=== PATIENT | male | born 1955 | race Caucasian/White ===

== ENCOUNTER 2017-05-04 09:48 | Observation (INO) | payer OTHER ==
[~2017-05-04] VITALS: Ht 170.2 cm; Wt 90.9 kg
[2017-05-04] VITALS (12 sets, daily range): BP systolic 96–144; BP diastolic 64–85
[2017-05-04] MEDS ORDERED: dilTIAZem 25 MG/5 ML VIAL ONE (10:04)
[2017-05-04] MEDS ORDERED: IV DEXTROSE 5% 100 ML IV ONE (10:06)
[2017-05-04] MEDS ORDERED: ASPIRIN 81 MG TAB.CHEW PO ONE (10:10)
[2017-05-04] MEDS ORDERED: dilTIAZem 25 MG/5 ML VIAL IVP ONE (10:10)
--- NOTE | 2017-05-04 10:22 | RAD ---
Portable chest, 05/04/2017: History: Palpitations Comparison is made to a study from 09/14/2006. There has been a previous median sternotomy. The heart size and pulmonary vascularity are normal. No pulmonary infiltrates are seen. There is no evidence of pleural fluid. IMPRESSION: No acute cardiopulmonary abnormality is detected.
[2017-05-04 10:29] LABS: BASO # 0.1 x10^3/uL (0.0-0.2); BASO % 1 % (0-3); EOS # 0.1 x10^3/uL (0.0-0.7); EOS % 1 % (0-3); HEMATOCRIT 47.9 % (39.0-53.0); LYMPH # 1.2 x10^3/uL (1.0-4.8); LYMPH % 13 % (24-48); MEAN CORPUSCULAR HEMOGLOBIN 29 pg (25-35); MEAN CORPUSCULAR HGB CONC 33 g/dL (31-37); MEAN CORPUSCULAR VOLUME 86 fL (79-100); MONO # 0.4 x10^3/uL (0.0-1.1); MONO % 4 % (0-9); NEUT # 7.4 x10^3uL (1.8-7.7); NEUT % 81 % (31-73); PLATELET COUNT 209 x10^3/uL (140-400); RED BLOOD COUNT 5.57 x10^6/uL (4.30-5.70); RED CELL DISTRIBUTION WIDTH 14.2 % (11.5-14.5); WHITE BLOOD COUNT 9.1 x10^3/uL (4.0-11.0)
--- NOTE | 2017-05-04 10:33 | ED.ADGEN ---
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 Patient states that he was at work when he felt his heart rate "begin to race". He denies any chest pain or shortness breath, any nausea or vomiting, any focal weakness, numbness or tingling, any near-syncope or presyncopal symptoms, any headache, vision changes , swelling of the extremities, rashes, fevers, chills or other complaints. He states he is feeling well before this occurred, states she's been compliant with all medications, including 160 mg of aspirin when he took this morning. Patient states she's had palpitations from time to time previously, but never as persistent as this morning. He states they began around 7:00 at the present for the past 3 hours or so. He states he has not previously been evaluated for palpitations. No history of DVT or PE, no recent travel or surgery. EMS 12-lead is consistent with atrial fibrillation with a heart rate in the 140s, patient has no history of atrial fibrillation or arrhythmia. He does not take blood thinners or aspirin. Denies tobacco use, no drugs or alcohol. Review of Systems Review of Systems Constitutional: Denies fever or chills [] Eyes: Denies change in visual acuity, redness, or eye pain [] HENT: Denies nasal congestion or sore throat [] Respiratory: Denies cough or shortness of breath [] Cardiovascular: No additional information not addressed in HPI [], palpitations. GI: Denies abdominal pain, nausea, vomiting, bloody stools or diarrhea [] : Denies dysuria or hematuria [] Musculoskeletal: Denies back pain or joint pain [] Integument: Denies rash or skin lesions [] Neurologic: Denies headache, focal weakness or sensory changes [] Endocrine: Denies polyuria or polydipsia [] Current Medications Current Medications Current Medications Medications (Trade) Dose Ordered Sig/Kyle Start Time Stop Time Status Last Admin Dose Admin Aspirin (Children'S Aspirin) 162 mg 1X ONCE 05/04/17 10:10 05/04/17 10:11 DC 05/04/17 10:21 162 MG Dextrose 100 ml @ As Directed STK-MED ONCE 05/04/17 10:06 05/04/17 10:07 DC Diltiazem HCl (Cardizem) 125 mg STK-MED ONCE 05/04/17 10:07 05/04/17 10:08 DC Diltiazem HCl 125 mg/Dextrose 125 ml @ 10 mls/hr 1X ONCE 05/04/17 10:10 05/04/17 22:39 05/04/17 10:24 10 MLS/HR Enoxaparin Sodium (Lovenox 100mg Syringe) 90 mg 1X ONCE 05/04/17 11:30 05/04/17 11:31 DC 05/04/17 11:32 90 MG Info (Anti-Coagulation Monitoring By Pharmacy) 1 each PRN DAILY PRN 05/04/17 11:15 Metoprolol Succinate (Toprol Xl) 100 mg 1X ONCE 05/04/17 11:25 05/04/17 11:26 DC 05/04/17 11:26 100 MG Allergies Allergies Allergies Coded Allergies Type Severity Reaction Last Updated Verified No Known Drug Allergies 05/04/17 No Physical Exam Physical Exam Constitutional: Well developed, well nourished, no acute distress, non-toxic appearance. [] HENT: Normocephalic, atraumatic, bilateral external ears normal, oropharynx moist, no oral exudates, nose normal. [] Eyes: PERRLA, EOMI, conjunctiva normal, no discharge. [] Neck: Normal range of motion, no tenderness, supple, no stridor. [] Cardiovascular:Heart rate irregular, rapid, no murmurs almond no rubs or gallops , S1, S2. [] Lungs & Thorax: Bilateral breath sounds clear to auscultation, no wheezing, rhonchi, rales. No chest or crepitus or tenderness. [] Abdomen: Bowel sounds normal, soft, no tenderness, no masses, no rebound, rigidity, no guarding, no pulsatile masses. [] Skin: Warm, dry, no erythema, no rash. [] Back: No tenderness, no CVA tenderness. [] Extremities: No tenderness, no cyanosis, no clubbing, ROM intact, no edema. Negative Homans sign. [] Neurologic: Alert and oriented X 3, normal motor function, normal sensory function, no focal deficits noted. [] Psychologic: Affect normal, judgement normal, mood normal. [] Current Patient Data Vital Signs Vital Signs Date Time Temp Pulse Resp B/P (MAP) Pulse Ox O2 Delivery O2 Flow Rate FiO2 05/04/17 11:26 120 17 144/84 (104) 97 Room Air 05/04/17 09:50 98.2 Lab Results Laboratory Tests Test 05/04/17 10:16 05/04/17 11:00 White Blood Count 9.1 x10^3/uL (4.0-11.0) Red Blood Count 5.57 x10^6/uL (4.30-5.70) Hemoglobin 16.0 g/dL (13.0-17.5) Hematocrit 47.9 % (39.0-53.0) Mean Corpuscular Volume 86 fL (79-100) Mean Corpuscular Hemoglobin 29 pg (25-35) Mean Corpuscular Hemoglobin Concent 33 g/dL (31-37) Red Cell Distribution Width 14.2 % (11.5-14.5) Platelet Count 209 x10^3/uL (140-400) Neutrophils (%) (Auto) 81 % (31-73) H Lymphocytes (%) (Auto) 13 % (24-48) L Monocytes (%) (Auto) 4 % (0-9) Eosinophils (%) (Auto) 1 % (0-3) Basophils (%) (Auto) 1 % (0-3) Neutrophils # (Auto) 7.4 x10^3uL (1.8-7.7) Lymphocytes # (Auto) 1.2 x10^3/uL (1.0-4.8) Monocytes # (Auto) 0.4 x10^3/uL (0.0-1.1) Eosinophils # (Auto) 0.1 x10^3/uL (0.0-0.7) Basophils # (Auto) 0.1 x10^3/uL (0.0-0.2) Prothrombin Time 10.1 SEC (9.4-11.4) Prothrombin Time INR 1.0 (0.9-1.1) PTT 25 SEC (23-33) Sodium Level 138 mmol/L (136-145) Potassium Level 4.1 mmol/L (3.5-5.1) Chloride Level 101 mmol/L (98-107) Carbon Dioxide Level 25 mmol/L (21-32) Anion Gap 12 (6-14) Blood Urea Nitrogen 11 mg/dL (8-26) Creatinine 1.0 mg/dL (0.7-1.3) Estimated GFR (Cockcroft-Gault) 75.5 BUN/Creatinine Ratio 11 (6-20) Glucose Level 231 mg/dL (70-99) H Calcium Level 9.3 mg/dL (8.5-10.1) Total Bilirubin 0.4 mg/dL (0.2-1.0) Aspartate Amino Transferase (AST) 20 U/L (15-37) Alanine Aminotransferase (ALT) 32 U/L (16-63) Alkaline Phosphatase 90 U/L (46-116) Troponin I Quantitative < 0.017 ng/mL (0-0.055) IQ-Yfw-S-Type Natriuretic Peptide 138 pg/mL (0-124) H Total Protein 7.8 g/dL (6.4-8.2) Albumin 4.3 g/dL (3.4-5.0) Albumin/Globulin Ratio 1.2 (1.0-1.7) Urine Collection Type Unknown Urine Color Straw Urine Clarity Clear Urine pH 7.0 Urine Specific [place] 1.015 Urine Protein 30 mg/dl (NEG-TRACE) Urine Glucose (UA) 500 mg/dL (NEG) Urine Ketones (Stick) Neg mg/dL (NEG) Urine Blood Trace (NEG) Urine Nitrite Neg (NEG) Urine Bilirubin Neg (NEG) Urine Urobilinogen Dipstick 0.2 mg/dL (0.2 mg/dL) Urine Leukocyte Esterase Neg (NEG) Urine RBC 3-5 /HPF (0-2) Urine WBC Occ /HPF (0-4) Urine Squamous Epithelial Cells Occ /LPF Urine Bacteria 0 /HPF (0-FEW) Urine Opiates Screen Neg (NEG) Urine Methadone Screen Neg (NEG) Urine Barbiturates Neg (NEG) Urine Phencyclidine Screen Neg (NEG) Urine Amphetamine/Methamphetamine Neg (NEG) Urine Benzodiazepines Screen Neg (NEG) Urine Cocaine Screen Neg (NEG) Urine Cannabinoids Screen Neg (NEG) Urine Ethyl Alcohol Neg (NEG) EKG EKG ECG: EMS 12-lead: 0932: Irregular rhythm, atrial fibrillation with rapid ventricular response, heart rate 148 beats are minute, upright axis, QTC of 458 , QRS of 102, patient with mild ST depression noted in leads V4 and V5, with contour abnormalities noted in the inferior leads as well as anterior septal leads as stated, no ST elevations, abnormal ECG, does not meet STEMI criteria, no prior for comparison. As interpreted by me. EC: Irregular rhythm, atrial fibrillation with rapid ventricular response , TC of 474, QRS of 98, contour normality is again noted in the inferior and anterior septal leads, with mild ST depression noted in V4 through V6, and T- wave inversions noted in lead 2 and lead 3, with mild depression noted in V2, no ST elevations, abnormal ECG, does not meet STEMI criteria. As interpreted by me. Radiology/Procedures Radiology/Procedures [][address] [address] IMAGING REPORT Signed PATIENT: TRINIDAD PUENTE ACCOUNT: [id number] : 1955 LOCATION: ER AGE: 61 SEX: M EXAM STATUS: PRE ER ORD. PHYSICIAN: LE SCHULTZ DO REASON: Palpitations PROCEDURE: PORTABLE CHEST 1V Portable chest, 05/04/2017: History: Palpitations Comparison is made to a study from 09/14/2006. There has been a previous median sternotomy. The heart size and pulmonary vascularity are normal. No pulmonary infiltrates are seen. There is no evidence of pleural fluid. IMPRESSION: No acute cardiopulmonary abnormality is detected. DICTATED AND SIGNED BY: KINGSLEY BECK MD DATE: 05/04/17 1018 CC: LE SCHULTZ DO; KRISH GARCIA MD ~ Course & Med Decision Making Course & Med Decision Making Pertinent Labs and Imaging studies reviewed. (See chart for details) Patient appears comfortable, blood pressure 135/78, heart rate is irregular, rapid, in the 140s, ECG is consistent with atrial fibrillation with rapid ventricular response. Did discuss these findings with patient, he is agreeable to being initiated on Cardizem, admission to the hospital for further evaluation of atrial fibrillation. He was given initial 162 mg of aspirin, and Cardizem bolus of 20 mg, initiated on a Cardizem drip. Blood pressure remained stable, heart rate did improve to low 100s, remained irregular, or rebounding, despite titration of diltiazem infusion. At maximum effusion patient's blood pressure remained stable, 150s over 80s heart rate is fluctuating between the low 100s to the 130s, remains in atrial fibrillation. Initial troponin and laboratory studies are within normal limits. Chest x-ray is unremarkable. I did speak with ALEYDA Herrera for cardiology, at this time we will anticoagulate patient with Lovenox, and we'll double the patient's home dose of metoprolol extended release, with 100 mg of metoprolol administered in the ED. Patient stable to be admitted to [facility] for continued evaluation and treatment, to be seen by cardiology once he is transferred to the main hospital. Patient remains comfortable, states that the palpitations have improved, has not developed any chest pain or other concerning symptoms. Remains agreeable with plan for admission to [facility]. I did discuss findings as above with Dr. Ritchie, of internal medicine, patient accepted to her service as a full admission to the ICU with cardiology consultation and continue monitoring and management as stated, bridge orders entered per discussion. Final Impression Final Impression [] Problems: Dragon Disclaimer Dragon Disclaimer This electronic medical record was generated, in whole or in part, using a voice recognition dictation system. Departure: Impression: Primary Impression: New onset atrial fibrillation Disposition: ADMITTED INPATIENT Condition: IMPROVED LE SCHULTZ DO May 04, 2017 10:33
[2017-05-04] MEDS ORDERED: ASPI-630 PO (10:42)
[2017-05-04] MEDS ORDERED: SERT50TA PO (10:43)
[2017-05-04] MEDS ORDERED: METF10002 PO (10:43)
[2017-05-04] MEDS ORDERED: METO50TA10 PO (10:43)
[2017-05-04] MEDS ORDERED: SIMV40TA3 PO (10:43)
[2017-05-04] MEDS ORDERED: AMLO5TAB2 PO (10:44)
[2017-05-04] MEDS ORDERED: LISI-334 PO (10:44)
[2017-05-04 10:50] LABS: ALBUMIN 4.3 g/dL (3.4-5.0); ALBUMIN/GLOBULIN RATIO 1.2 (1.0-1.7); CALCIUM 9.3 mg/dL (8.5-10.1); GFR 75.5; POTASSIUM 4.1 mmol/L (3.5-5.1); TOTAL BILIRUBIN 0.4 mg/dL (0.2-1.0); TOTAL PROTEIN 7.8 g/dL (6.4-8.2)
[2017-05-04] MEDS ORDERED: ANTI-COAG MONITOR BY PHARMACY. MC PRN (11:15)
[2017-05-04 11:16] LABS: BILIRUBIN,URINE NEG (NEG); CLARITY,URINE CLEAR; COLOR,URINE STRAW; GLUCOSE,URINE 500 mg/dL (NEG); NITRITE,URINE NEG (NEG); UROBILINOGEN,URINE 0.2 mg/dL (0.2 mg/dL); WBC,URINE OCC /HPF (0-4)
[2017-05-04 11:17] LABS: AMPHETAMINE/METHAMPHETAMINE NEG (NEG); BACTERIA,URINE 0 /HPF (0-FEW); BARBITURATES NEG (NEG); BENZODIAZEPINES NEG (NEG); CANNABINOIDS NEG (NEG); COCAINE NEG (NEG); METHADONE NEG (NEG); OPIATES NEG (NEG); PHENCYCLIDINE NEG (NEG); SQUAMOUS EPITHELIAL CELL,UR OCC /LPF
[2017-05-04] MEDS ORDERED: METOPROLOL SUCC 24HR ER 25 MG TAB.ER.24H. PO ONE (11:25)
[2017-05-04] MEDS ORDERED: ENOXAPARIN ** NOTE DOSE ** SYRINGE SQ ONE (11:30)
[2017-05-04] MEDS ORDERED: ACETAMINOPHEN 325 MG TABLET PO PRN (11:45)
[2017-05-04] MEDS ORDERED: INSULIN ASPART 300 UNITS/3 ML INSULN.PEN SQ SCH (11:45)
[2017-05-04] MEDS ORDERED: NITROGLYCERIN SUBLINGUAL 0.4 MG BOTTLE OF 25. SL PRN (11:45)
[2017-05-04] MEDS ORDERED: ONDANSETRON PF 4 MG/2 ML VIAL. IV PRN (11:45)
[2017-05-04] MEDS ORDERED: DEXTROSE 50% 25 GM / 50ML DISP.SYRIN. IV PRN (11:45)
--- NOTE | 2017-05-04 14:32 | EKG ---
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
--- NOTE | 2017-05-04 14:35 | EKG ---
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
--- NOTE | 2017-05-04 16:19 | EKG ---
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
--- NOTE | 2017-05-04 20:21 | HP ---
ADMIT DATE: 05/04/2017 REASON FOR ADMISSION: AFib with RVR. HISTORY OF PRESENT ILLNESS: This is a 61-year-old male with a previous history of coronary artery disease and hypertension, who drove himself to work today at [employer] and while he was at work, felt his heart racing and had some palpitations. He just did not feel right and was going to first try to go to his primary care doctor, but then went to the Emergency Room. PAST MEDICAL HISTORY: 1. Coronary artery disease and had a bypass 10 years ago. 2. Hypertension. 3. Hyperlipidemia. MEDICATIONS: Reviewed and are available on the NOV. HOME MEDICATIONS: Amlodipine 5 mg a day, aspirin 81 mg a day, lisinopril 20 mg a day, metformin 1000 mg twice a day, metoprolol 50 mg extended release succinate once daily, Zoloft 50 mg a day and simvastatin 40 mg a day. FAMILY HISTORY: Positive for heart disease in his mother. SOCIAL HISTORY: Works at [employer]. He does not smoke or drink. REVIEW OF SYSTEMS: As per HPI, however, has been reasonably well, denies chest pain, denies shortness of breath, denies exertional chest pain, denies problems with his urination. Denies problems with his bowels. Denies sore throat, fever or extremities. OBJECTIVE: VITAL SIGNS: Blood pressure 112/85, pulse 106, respirations 16, pulse ox 94% on room air. HEENT: His hearing is normal. His eyes are clear. His nose is patent. His throat was clear. NECK: Supple. There are no carotid bruits. Thyroid was not enlarged. LUNGS: Clear to auscultation. CARDIOVASCULAR: Irregular rhythm and rate and fluctuating between in the 70s to 120, 130. ABDOMEN: Soft, nontender. EXTREMITIES: Without edema, cords. LABORATORY DATA: TSH was 5.291. Urine is a few cells, 3-5 red cells. ASSESSMENT: Atrial fibrillation with rapid ventricular response. PLAN: He is on Cardizem drip, increasing his metoprolol to 100 mg a day, discontinuing the Norvasc, switching the statin to atorvastatin and probably, we will consider anticoagulation tomorrow with one of the novel anticoagulants. Cardiology to see. RABIA BERNARD DO DR: Rae JOB#: [id number] / [id number]
[2017-05-04] MEDS ORDERED: ATORVASTATIN CALCIUM 20 MG TABLET PO SCH (21:00)
[2017-05-04] MEDS ORDERED: DEXTROSE 5% IV PRN (21:45)
[2017-05-04] MEDS ORDERED: DILTIAZEM IV PRN (21:45)
[2017-05-05] VITALS (15 sets, daily range): BP systolic 90–146; BP diastolic 58–82
[2017-05-05 07:00] LABS: BASO # 0.1 x10^3/uL (0.0-0.2); BASO % 1 % (0-3); EOS # 0.2 x10^3/uL (0.0-0.7); EOS % 2 % (0-3); HEMATOCRIT 46.9 % (39.0-53.0); HEMOGLOBIN 15.6 g/dL (13.0-17.5); LYMPH # 3.1 x10^3/uL (1.0-4.8); LYMPH % 33 % (24-48); MEAN CORPUSCULAR HEMOGLOBIN 29 pg (25-35); MEAN CORPUSCULAR HGB CONC 33 g/dL (31-37); MEAN CORPUSCULAR VOLUME 87 fL (79-100); MONO # 0.7 x10^3/uL (0.0-1.1); MONO % 7 % (0-9); NEUT # 5.2 x10^3uL (1.8-7.7); NEUT % 57 % (31-73); PLATELET COUNT 225 x10^3/uL (140-400); RED BLOOD COUNT 5.43 x10^6/uL (4.30-5.70); WHITE BLOOD COUNT 9.1 x10^3/uL (4.0-11.0)
[2017-05-05 07:02] LABS: CALCIUM 9.5 mg/dL (8.5-10.1); GFR 75.5
[2017-05-05] MEDS ORDERED: metFORMIN 500 MG TABLET PO SCH (08:00)
--- NOTE | 2017-05-05 08:28 | PDOC2 ---
MARLENE GUIDRY LEAD TELLER 05/05/17 0828: CONSULT Date of Admission DATE: 05/05/17 TIME: 08:22 Reason for Consult: atrial fibrillation with RVR Problem List Problems Medical Problems: (1) New onset atrial fibrillation Status: Acute History of Present Illness Mr Browning is a 61 year old male with history of CABG x 3 ~10 years ago. He has not followed up with a account associate since just after bypass. He reports going in to work yesterday and feeling that his heart was racing and "feeling funny" so presented to the ED where he was found to be in atrial fibrillation with RVR. He reports having palpitations off and on but not seeking treatment for them as he was not feeling bad. He denies any chest discomfort. He reports no symptoms prior to bypass other than an episode of fluttering in his chest that he says was different from current symptoms and all over body aches the day prior. He denies congestive symptoms or dyspnea. He denies lightheadedness or syncope. He reports being able to mow his yard without problems. Past Medical History Coronary artery disease and had a bypass 10 years ago, hypertension, hyperlipidemia, diabetes mellitus Past Surgical History CABG Family History Positive for heart disease in his mother. Social History Works at [employer]. He does not smoke or drink and denies illicit drug use. Current Medications Current Medications Diltiazem HCl (Cardizem) 20 mg 1X ONCE IVP Last administered on 05/04/17 10: 21; Start 05/04/17 at 10:10; Stop 05/04/17 at 10:11; Status DC Diltiazem HCl 125 mg/Dextrose 125 ml @ 10 mls/hr 1X ONCE IV Last administered on 05/04/17 10:24; Start 05/04/17 at 10:10; Stop 05/04/17 at 21:38 ; Status DC Aspirin (Children'S Aspirin) 162 mg 1X ONCE PO Last administered on 05/04/17 10:21; Start 05/04/17 at 10:10; Stop 05/04/17 at 10:11; Status DC Diltiazem HCl (Cardizem) 25 mg STK-MED ONCE .ROUTE ; Start 05/04/17 at 10:04; Stop 05/04/17 at 10:05; Status DC Dextrose 100 ml @ As Directed STK-MED ONCE IV ; Start 05/04/17 at 10:06; Stop 05/04/17 at 10:07; Status DC Diltiazem HCl (Cardizem) 125 mg STK-MED ONCE IV ; Start 05/04/17 at 10:07; Stop 05/04/17 at 10:08; Status DC Info (Anti-Coagulation Monitoring By Pharmacy) 1 each PRN DAILY PRN MC SEE COMMENTS; Start 05/04/17 at 11:15 Metoprolol Succinate (Toprol Xl) 100 mg 1X ONCE PO Last administered on 11:26; Start 05/04/17 at 11:25; Stop 05/04/17 at 11:26; Status DC Enoxaparin Sodium (Lovenox 100mg Syringe) 90 mg 1X ONCE SQ Last administered on 05/04/17 11:32; Start 05/04/17 at 11:30; Stop 05/04/17 at 11:31; Status DC Ondansetron HCl (Zofran) 4 mg PRN Q4HRS PRN IV NAUSEA/VOMITING; Start 05/04/17 at 11:45; Stop 05/05/17 at 11:44 Acetaminophen (Tylenol) 650 mg PRN Q4HRS PRN PO FEVER Last administered on 05/04 15:05; Start 05/04/17 at 11:45; Stop 05/05/17 at 11:44 Nitroglycerin (Nitrostat) 0.4 mg PRN Q5MIN PRN SL CHEST PAIN; Start 05/04/17 at 11:45; Stop 05/05/17 at 11:44 Insulin Aspart (NovoLOG) 0-5 UNITS CONT PRN SQ ; Start 05/04/17 at 11:45 Dextrose 12.5 gm PRN Q15MIN PRN IV SEE COMMENTS; Start 05/04/17 at 11:45 Pneumococcal Polyvalent Vaccine (Pneumovax 23) 0.5 ml ONCE ONCE VAX IM ; Start 05/05/17 at 09:00; Stop 05/05/17 at 09:01 Aspirin (Children'S Aspirin) 162 mg DAILY PO ; Start 05/05/17 at 09:00 Lisinopril (Prinivil) 20 mg DAILY PO ; Start 05/05/17 at 09:00 Metoprolol Succinate (Toprol Xl) 100 mg DAILY PO ; Start 05/05/17 at 09:00 Sertraline HCl (Zoloft) 50 mg DAILY PO ; Start 05/05/17 at 09:00 Metformin HCl (Glucophage) 1,000 mg BIDWMEALS PO ; Start 05/05/17 at 08:00 Atorvastatin Calcium (Lipitor) 20 mg QHS PO Last administered on 05/04/17 20: 54; Start 05/04/17 at 21:00 Diltiazem HCl 100 mg/Dextrose 125 ml @ 0 mls/hr CONT PRN IV SEE I/O RECORD; Start 05/04/17 at 21:45; Stop 05/04/17 at 21:45; Status DC Diltiazem HCl 100 mg/Dextrose 100 ml @ 0 mls/hr CONT PRN IV SEE I/O RECORD Last administered on 05/04/17 23:00; Start 05/04/17 at 21:45 Enoxaparin Sodium (Lovenox 100mg Syringe) 90 mg Q12HR SQ ; Start 05/05/17 at 09: 00 Active Scripts Active Reported Amlodipine Besylate 5 Mg Tablet 1 Tab PO DAILY LAST DOSE GIVEN: DATE: TIME: NEXT DOSE DUE: DATE: TIME: Lisinopril 20 Mg Tablet 1 Tab PO DAILY LAST DOSE GIVEN: DATE: TIME: NEXT DOSE DUE: DATE: TIME: Simvastatin 40 Mg Tablet 1 Tab PO QHS LAST DOSE GIVEN: DATE: TIME: NEXT DOSE DUE: DATE: TIME: Metformin Hcl 1,000 Mg Tablet 1 Tab PO BID LAST DOSE GIVEN: DATE: TIME: NEXT DOSE DUE: DATE: TIME: Zoloft (Sertraline Hcl) 50 Mg Tablet 1 Tab PO DAILY LAST DOSE GIVEN: DATE: TIME: NEXT DOSE DUE: DATE: TIME: Metoprolol Succinate ( Xl ) (Metoprolol Succinate) 50 Mg Tab.er.24h 1 Tab PO DAILY LAST DOSE GIVEN: DATE: TIME: NEXT DOSE DUE: DATE: TIME: Aspirin 81 Mg Tab.chew 162 Mg PO DAILY LAST DOSE GIVEN: DATE: TIME: NEXT DOSE DUE: DATE: TIME: Allergies: Coded Allergies: No Known Drug Allergies (Unverified , 05/04/17) Review of System as per HPI or negative General: Alert, Oriented X3, Cooperative, No acute distress HEENT: Atraumatic, EOMI, Mucous membr. moist/pink Lungs: Clear to auscultation, Normal air movement Heart: Other (irregular rate and rhythm without gallops, clicks or rubs) Abdomen: Normal bowel sounds, Soft Extremities: No cyanosis, No edema, Normal pulses Neuro: Normal speech, Strength at 5/5 X4 ext Psych/Mental Status: Mental status NL, Mood NL VITALS Vital Signs Date Time Temp Pulse Resp B/P (MAP) Pulse Ox O2 Delivery O2 Flow Rate FiO2 05/05/17 08:11 Room Air 05/05/17 06:11 107 14 103/70 (81) 95 05/05/17 05:06 98.5 Labs Laboratory Tests Test 05/04/17 10:16 05/04/17 11:00 05/04/17 12:15 05/04/17 16:00 White Blood Count 9.1 x10^3/uL (4.0-11.0) Red Blood Count 5.57 x10^6/uL (4.30-5.70) Hemoglobin 16.0 g/dL (13.0-17.5) Hematocrit 47.9 % (39.0-53.0) Mean Corpuscular Volume 86 fL (79-100) Mean Corpuscular Hemoglobin 29 pg (25-35) Mean Corpuscular Hemoglobin Concent 33 g/dL (31-37) Red Cell Distribution Width 14.2 % (11.5-14.5) Platelet Count 209 x10^3/uL (140-400) Neutrophils (%) (Auto) 81 % (31-73) Lymphocytes (%) (Auto) 13 % (24-48) Monocytes (%) (Auto) 4 % (0-9) Eosinophils (%) (Auto) 1 % (0-3) Basophils (%) (Auto) 1 % (0-3) Neutrophils # (Auto) 7.4 x10^3uL (1.8-7.7) Lymphocytes # (Auto) 1.2 x10^3/uL (1.0-4.8) Monocytes # (Auto) 0.4 x10^3/uL (0.0-1.1) Eosinophils # (Auto) 0.1 x10^3/uL (0.0-0.7) Basophils # (Auto) 0.1 x10^3/uL (0.0-0.2) Prothrombin Time 10.1 SEC (9.4-11.4) Prothromb Time International Ratio 1.0 (0.9-1.1) Activated Partial Thromboplast Time 25 SEC (23-33) Sodium Level 138 mmol/L (136-145) Potassium Level 4.1 mmol/L (3.5-5.1) Chloride Level 101 mmol/L (98-107) Carbon Dioxide Level 25 mmol/L (21-32) Anion Gap 12 (6-14) Blood Urea Nitrogen 11 mg/dL (8-26) Creatinine 1.0 mg/dL (0.7-1.3) Estimated GFR (Cockcroft-Gault) 75.5 BUN/Creatinine Ratio 11 (6-20) Glucose Level 231 mg/dL (70-99) Calcium Level 9.3 mg/dL (8.5-10.1) Total Bilirubin 0.4 mg/dL (0.2-1.0) Aspartate Amino Transf (AST/SGOT) 20 U/L (15-37) Alanine Aminotransferase (ALT/SGPT) 32 U/L (16-63) Alkaline Phosphatase 90 U/L (46-116) Troponin I Quantitative < 0.017 ng/mL (0-0.055) < 0.017 ng/mL (0-0.055) FD-Prq-I-Type Natriuretic Peptide 138 pg/mL (0-124) Total Protein 7.8 g/dL (6.4-8.2) Albumin 4.3 g/dL (3.4-5.0) Albumin/Globulin Ratio 1.2 (1.0-1.7) Thyroid Stimulating Hormone (TSH) 5.291 uIU/mL (0.358-3.740) Urine Collection Type Unknown Urine Color Straw Urine Clarity Clear Urine pH 7.0 Urine Specific [place] 1.015 Urine Protein 30 mg/dl (NEG-TRACE) Urine Glucose (UA) 500 mg/dL (NEG) Urine Ketones (Stick) Neg mg/dL (NEG) Urine Blood Trace (NEG) Urine Nitrite Neg (NEG) Urine Bilirubin Neg (NEG) Urine Urobilinogen Dipstick 0.2 mg/dL (0.2 mg/dL) Urine Leukocyte Esterase Neg (NEG) Urine RBC 3-5 /HPF (0-2) Urine WBC Occ /HPF (0-4) Urine Squamous Epithelial Cells Occ /LPF Urine Bacteria 0 /HPF (0-FEW) Urine Opiates Screen Neg (NEG) Urine Methadone Screen Neg (NEG) Urine Barbiturates Neg (NEG) Urine Phencyclidine Screen Neg (NEG) Urine Amphetamine/Methamphetamine Neg (NEG) Urine Benzodiazepines Screen Neg (NEG) Urine Cocaine Screen Neg (NEG) Urine Cannabinoids Screen Neg (NEG) Urine Ethyl Alcohol Neg (NEG) Nasal Screen MRSA (PCR) Negative (Negative) Test 05/04/17 17:00 05/04/17 19:48 05/04/17 22:23 05/05/17 05:56 Glucose (Fingerstick) 157 mg/dL (70-99) 145 mg/dL (70-99) Troponin I Quantitative < 0.017 ng/mL (0-0.055) White Blood Count 9.1 x10^3/uL (4.0-11.0) Red Blood Count 5.43 x10^6/uL (4.30-5.70) Hemoglobin 15.6 g/dL (13.0-17.5) Hematocrit 46.9 % (39.0-53.0) Mean Corpuscular Volume 87 fL (79-100) Mean Corpuscular Hemoglobin 29 pg (25-35) Mean Corpuscular Hemoglobin Concent 33 g/dL (31-37) Red Cell Distribution Width 14.0 % (11.5-14.5) Platelet Count 225 x10^3/uL (140-400) Neutrophils (%) (Auto) 57 % (31-73) Lymphocytes (%) (Auto) 33 % (24-48) Monocytes (%) (Auto) 7 % (0-9) Eosinophils (%) (Auto) 2 % (0-3) Basophils (%) (Auto) 1 % (0-3) Neutrophils # (Auto) 5.2 x10^3uL (1.8-7.7) Lymphocytes # (Auto) 3.1 x10^3/uL (1.0-4.8) Monocytes # (Auto) 0.7 x10^3/uL (0.0-1.1) Eosinophils # (Auto) 0.2 x10^3/uL (0.0-0.7) Basophils # (Auto) 0.1 x10^3/uL (0.0-0.2) Sodium Level 139 mmol/L (136-145) Potassium Level 4.0 mmol/L (3.5-5.1) Chloride Level 104 mmol/L (98-107) Carbon Dioxide Level 28 mmol/L (21-32) Anion Gap 7 (6-14) Blood Urea Nitrogen 15 mg/dL (8-26) Creatinine 1.0 mg/dL (0.7-1.3) Estimated GFR (Cockcroft-Gault) 75.5 Glucose Level 161 mg/dL (70-99) Calcium Level 9.5 mg/dL (8.5-10.1) Magnesium Level 1.9 mg/dL (1.8-2.4) Test 05/05/17 07:29 Glucose (Fingerstick) 190 mg/dL (70-99) Images EKG - afib with RVR, IWMI age undetermined, non specific ST/T abn CXR - no acute abnormalities Assessment/Plan 1. Atrial fibrillation/Flutter with RVR - Cardizem drip, increase metoprolol, Cha2ds 2 vasc score = 3, add anticoagulant for stroke prophylaxis 2. CAD s/p CABG x3 ~10 yrs ago - check echo, outpatient MPI for progression of coronary disease as he has history of silent ischemia prior to bypass. 3. hypertension - resume home meds except norvasc, optimize as needed. 4. hyperlipidemia - change statin to atorvastatin, check lipids 5. diabetes mellitus - per PCP Problems: STEPHANIE TRINIDAD MD 05/05/17 1629: CONSULT Allergies: Coded Allergies: No Known Drug Allergies (Unverified , 05/04/17) Assessment/Plan Patient seen and examined. Agree with [employer]ICER's assessment and plan. New onset atrial flutter rate better controlled. Change Cardizem to by mouth. Agree with Eliquis for long-term anticoagulation. 2-D echo showed normal LV systolic function. CAD status appears stable. Plan for outpatient ischemic evaluation in the formal stress test since patient has not had any recent cardiac workup. Okay for discharge from cardiac standpoint. Thank you for your consultation. Problems: MARLENE GUIDRY APRN May 05, 2017 08:28 STEPHANIE TRINIDAD MD May 05, 2017 16:29
[2017-05-05] MEDS ORDERED: ENOXAPARIN ** NOTE DOSE ** SYRINGE SQ SCH (09:00)
[2017-05-05] MEDS ORDERED: PNEUMOC CONJ VACC 23-VALENT 0.5 ML VIAL. VAX IM ONE (09:00)
[2017-05-05] MEDS ORDERED: APIXABAN 5 MG TABLET. PO SCH (09:00)
[2017-05-05] MEDS ORDERED: METOPROLOL SUCC 24HR ER 50 MG TAB.ER.24H. PO SCH (09:00)
[2017-05-05] MEDS ORDERED: LISINOPRIL 20 MG TABLET PO SCH (09:00)
[2017-05-05] MEDS ORDERED: ASPIRIN 81 MG TAB.CHEW PO SCH (09:00)
[2017-05-05] MEDS ORDERED: SERTRALINE 50 MG TABLET. PO SCH (09:00)
--- NOTE | 2017-05-05 14:35 | PDOC3 ---
Discharge Summary Visit Information Date of Admission: May 04, 2017 Date of Discharge: May 05, 2017 Final Diagnosis Problems Medical Problems: (1) New onset atrial fibrillation Status: Acute . Atrial fibrillation/Flutter with RVR - Cardizem drip OFF-CONVERTED TO NSR, increase metoprolol, Cha2ds 2 vasc score = 3, add anticoagulant for stroke prophylaxis 2. CAD s/p CABG x3 ~10 yrs ago - check echo, outpatient MPI for progression of coronary disease as he has history of silent ischemia prior to bypass. 3. hypertension - resume home meds except norvasc, optimize as needed. 4. hyperlipidemia - change statin to atorvastatin, check lipids 5. diabetes mellitus 6. DVT PROPHYLAXIS 7. HEALTH MAINTENANCE-RECEIVED PNEUMOCOCCAL VACCINE Problems: Brief Hospital Course Allergies Allergies Coded Allergies Type Severity Reaction Last Updated Verified No Known Drug Allergies 05/04/17 No Vital Signs Vital Signs Date Time Temp Pulse Resp B/P (MAP) Pulse Ox O2 Delivery O2 Flow Rate FiO2 05/05/17 12:00 Room Air 05/05/17 12:00 76 15 119/76 (90) 96 05/05/17 11:15 97.5 Lab Results Laboratory Tests Test 05/04/17 10:16 05/04/17 11:00 05/04/17 12:15 05/04/17 16:00 White Blood Count 9.1 x10^3/uL (4.0-11.0) Red Blood Count 5.57 x10^6/uL (4.30-5.70) Hemoglobin 16.0 g/dL (13.0-17.5) Hematocrit 47.9 % (39.0-53.0) Mean Corpuscular Volume 86 fL (79-100) Mean Corpuscular Hemoglobin 29 pg (25-35) Mean Corpuscular Hemoglobin Concent 33 g/dL (31-37) Red Cell Distribution Width 14.2 % (11.5-14.5) Platelet Count 209 x10^3/uL (140-400) Neutrophils (%) (Auto) 81 % (31-73) Lymphocytes (%) (Auto) 13 % (24-48) Monocytes (%) (Auto) 4 % (0-9) Eosinophils (%) (Auto) 1 % (0-3) Basophils (%) (Auto) 1 % (0-3) Neutrophils # (Auto) 7.4 x10^3uL (1.8-7.7) Lymphocytes # (Auto) 1.2 x10^3/uL (1.0-4.8) Monocytes # (Auto) 0.4 x10^3/uL (0.0-1.1) Eosinophils # (Auto) 0.1 x10^3/uL (0.0-0.7) Basophils # (Auto) 0.1 x10^3/uL (0.0-0.2) Prothrombin Time 10.1 SEC (9.4-11.4) Prothromb Time International Ratio 1.0 (0.9-1.1) Activated Partial Thromboplast Time 25 SEC (23-33) Sodium Level 138 mmol/L (136-145) Potassium Level 4.1 mmol/L (3.5-5.1) Chloride Level 101 mmol/L (98-107) Carbon Dioxide Level 25 mmol/L (21-32) Anion Gap 12 (6-14) Blood Urea Nitrogen 11 mg/dL (8-26) Creatinine 1.0 mg/dL (0.7-1.3) Estimated GFR (Cockcroft-Gault) 75.5 BUN/Creatinine Ratio 11 (6-20) Glucose Level 231 mg/dL (70-99) Calcium Level 9.3 mg/dL (8.5-10.1) Total Bilirubin 0.4 mg/dL (0.2-1.0) Aspartate Amino Transf (AST/SGOT) 20 U/L (15-37) Alanine Aminotransferase (ALT/SGPT) 32 U/L (16-63) Alkaline Phosphatase 90 U/L (46-116) Troponin I Quantitative < 0.017 ng/mL (0-0.055) < 0.017 ng/mL (0-0.055) EO-Lyw-B-Type Natriuretic Peptide 138 pg/mL (0-124) Total Protein 7.8 g/dL (6.4-8.2) Albumin 4.3 g/dL (3.4-5.0) Albumin/Globulin Ratio 1.2 (1.0-1.7) Thyroid Stimulating Hormone (TSH) 5.291 uIU/mL (0.358-3.740) Urine Collection Type Unknown Urine Color Straw Urine Clarity Clear Urine pH 7.0 Urine Specific [place] 1.015 Urine Protein 30 mg/dl (NEG-TRACE) Urine Glucose (UA) 500 mg/dL (NEG) Urine Ketones (Stick) Neg mg/dL (NEG) Urine Blood Trace (NEG) Urine Nitrite Neg (NEG) Urine Bilirubin Neg (NEG) Urine Urobilinogen Dipstick 0.2 mg/dL (0.2 mg/dL) Urine Leukocyte Esterase Neg (NEG) Urine RBC 3-5 /HPF (0-2) Urine WBC Occ /HPF (0-4) Urine Squamous Epithelial Cells Occ /LPF Urine Bacteria 0 /HPF (0-FEW) Urine Opiates Screen Neg (NEG) Urine Methadone Screen Neg (NEG) Urine Barbiturates Neg (NEG) Urine Phencyclidine Screen Neg (NEG) Urine Amphetamine/Methamphetamine Neg (NEG) Urine Benzodiazepines Screen Neg (NEG) Urine Cocaine Screen Neg (NEG) Urine Cannabinoids Screen Neg (NEG) Urine Ethyl Alcohol Neg (NEG) Nasal Screen MRSA (PCR) Negative (Negative) Test 05/04/17 17:00 05/04/17 19:48 05/04/17 22:23 05/05/17 05:56 Glucose (Fingerstick) 157 mg/dL (70-99) 145 mg/dL (70-99) Troponin I Quantitative < 0.017 ng/mL (0-0.055) White Blood Count 9.1 x10^3/uL (4.0-11.0) Red Blood Count 5.43 x10^6/uL (4.30-5.70) Hemoglobin 15.6 g/dL (13.0-17.5) Hematocrit 46.9 % (39.0-53.0) Mean Corpuscular Volume 87 fL (79-100) Mean Corpuscular Hemoglobin 29 pg (25-35) Mean Corpuscular Hemoglobin Concent 33 g/dL (31-37) Red Cell Distribution Width 14.0 % (11.5-14.5) Platelet Count 225 x10^3/uL (140-400) Neutrophils (%) (Auto) 57 % (31-73) Lymphocytes (%) (Auto) 33 % (24-48) Monocytes (%) (Auto) 7 % (0-9) Eosinophils (%) (Auto) 2 % (0-3) Basophils (%) (Auto) 1 % (0-3) Neutrophils # (Auto) 5.2 x10^3uL (1.8-7.7) Lymphocytes # (Auto) 3.1 x10^3/uL (1.0-4.8) Monocytes # (Auto) 0.7 x10^3/uL (0.0-1.1) Eosinophils # (Auto) 0.2 x10^3/uL (0.0-0.7) Basophils # (Auto) 0.1 x10^3/uL (0.0-0.2) Sodium Level 139 mmol/L (136-145) Potassium Level 4.0 mmol/L (3.5-5.1) Chloride Level 104 mmol/L (98-107) Carbon Dioxide Level 28 mmol/L (21-32) Anion Gap 7 (6-14) Blood Urea Nitrogen 15 mg/dL (8-26) Creatinine 1.0 mg/dL (0.7-1.3) Estimated GFR (Cockcroft-Gault) 75.5 Glucose Level 161 mg/dL (70-99) Calcium Level 9.5 mg/dL (8.5-10.1) Magnesium Level 1.9 mg/dL (1.8-2.4) Triglycerides Level 169 mg/dL (0-150) Cholesterol Level 164 mg/dL (0-200) LDL Cholesterol, Calculated 83 mg/dL (0-100) VLDL Cholesterol, Calculated 33 mg/dL (0-40) Non-HDL Cholesterol Calculated 116 mg/dL (0-129) HDL Cholesterol 48 mg/dL (40-60) Cholesterol/HDL Ratio 3.0 Test 05/05/17 07:29 05/05/17 11:29 Glucose (Fingerstick) 190 mg/dL (70-99) 184 mg/dL (70-99) Brief Hospital Course Mr. Browning is a 61 old MALE WHO PRESENTED IWTH A FIB WITH RVR. MOST OF HIS CARE DONE BY CARDIOLOGY-PLEASE SEE CARDIOLOGY NOTE. HE CONVERTED TO NSR . HE HAD HIS METOPROLOL INCREASED. Discharge Information Condition at Discharge: Improved Disposition/Orders: D/C to Home Dischare Medications Current Medications Diltiazem HCl (Cardizem) 20 mg 1X ONCE IVP Last administered on 05/04/17t 10: 21; Start 05/04/17 at 10:10; Stop 05/04/17 at 10:11; Status DC Diltiazem HCl 125 mg/Dextrose 125 ml @ 10 mls/hr 1X ONCE IV Last administered on 05/04/17 10:24; Start 05/04/17 at 10:10; Stop 05/04/17 at 21:38 ; Status DC Aspirin (Children'S Aspirin) 162 mg 1X ONCE PO Last administered on 05/04/17 10:21; Start 05/04/17 at 10:10; Stop 05/04/17 at 10:11; Status DC Diltiazem HCl (Cardizem) 25 mg STK-MED ONCE .ROUTE ; Start 05/04/17 at 10:04; Stop 05/04/17 at 10:05; Status DC Dextrose 100 ml @ As Directed STK-MED ONCE IV ; Start 05/04/17 at 10:06; Stop 05/04/17 at 10:07; Status DC Diltiazem HCl (Cardizem) 125 mg STK-MED ONCE IV ; Start 05/04/17 at 10:07; Stop 05/04/17 at 10:08; Status DC Info (Anti-Coagulation Monitoring By Pharmacy) 1 each PRN DAILY PRN MC SEE COMMENTS; Start 05/04/17 at 11:15 Metoprolol Succinate (Toprol Xl) 100 mg 1X ONCE PO Last administered on 11:26; Start 05/04/17 at 11:25; Stop 05/04/17 at 11:26; Status DC Enoxaparin Sodium (Lovenox 100mg Syringe) 90 mg 1X ONCE SQ Last administered on 05/04/17 11:32; Start 05/04/17 at 11:30; Stop 05/04/17 at 11:31; Status DC Ondansetron HCl (Zofran) 4 mg PRN Q4HRS PRN IV NAUSEA/VOMITING; Start 05/04/17 at 11:45; Stop 05/05/17 at 11:44; Status DC Acetaminophen (Tylenol) 650 mg PRN Q4HRS PRN PO FEVER Last administered on 05/04 15:05; Start 05/04/17 at 11:45; Stop 05/05/17 at 11:44; Status DC Nitroglycerin (Nitrostat) 0.4 mg PRN Q5MIN PRN SL CHEST PAIN; Start 05/04/17 at 11:45; Stop 05/05/17 at 11:44; Status DC Insulin Aspart (NovoLOG) 0-5 UNITS CONT PRN SQ ; Start 05/04/17 at 11:45 Dextrose 12.5 gm PRN Q15MIN PRN IV SEE COMMENTS; Start 05/04/17 at 11:45 Pneumococcal Polyvalent Vaccine (Pneumovax 23) 0.5 ml ONCE ONCE VAX IM ; Start 05/05/17 at 09:00; Stop 05/05/17 at 09:01; Status DC Aspirin (Children'S Aspirin) 162 mg DAILY PO Last administered on 05/05/17 09: 21; Start 05/05/17 at 09:00 Lisinopril (Prinivil) 20 mg DAILY PO Last administered on 05/05/17 09:22; Start 05/05/17 at 09:00 Metoprolol Succinate (Toprol Xl) 100 mg DAILY PO Last administered on 09:22; Start 05/05/17 at 09:00 Sertraline HCl (Zoloft) 50 mg DAILY PO Last administered on 05/05/17 09:22; Start 05/05/17 at 09:00 Metformin HCl (Glucophage) 1,000 mg BIDWMEALS PO Last administered on 09:22; Start 05/05/17 at 08:00 Atorvastatin Calcium (Lipitor) 20 mg QHS PO Last administered on 05/04/17 20: 54; Start 05/04/17 at 21:00 Diltiazem HCl 100 mg/Dextrose 125 ml @ 0 mls/hr CONT PRN IV SEE I/O RECORD; Start 05/04/17 at 21:45; Stop 05/04/17 at 21:45; Status DC Diltiazem HCl 100 mg/Dextrose 100 ml @ 0 mls/hr CONT PRN IV SEE I/O RECORD Last administered on 05/04/17 23:00; Start 05/04/17 at 21:45 Enoxaparin Sodium (Lovenox 100mg Syringe) 90 mg Q12HR SQ ; Start 05/05/17 at 09: 00; Stop 05/05/17 at 09:00; Status DC Apixaban (Eliquis) 5 mg BID PO Last administered on 05/05/17 09:22; Start at 09:00 Diltiazem HCl (Cardizem 24hr Cd) 240 mg DAILY PO Last administered on t 10:59; Start 05/05/17 at 11:00 Active Scripts Active Reported Amlodipine Besylate 5 Mg Tablet 1 Tab PO DAILY LAST DOSE GIVEN: DATE: TIME: NEXT DOSE DUE: DATE: TIME: Lisinopril 20 Mg Tablet 1 Tab PO DAILY LAST DOSE GIVEN: DATE: TIME: NEXT DOSE DUE: DATE: TIME: Simvastatin 40 Mg Tablet 1 Tab PO QHS LAST DOSE GIVEN: DATE: TIME: NEXT DOSE DUE: DATE: TIME: Metformin Hcl 1,000 Mg Tablet 1 Tab PO BID LAST DOSE GIVEN: DATE: TIME: NEXT DOSE DUE: DATE: TIME: Zoloft (Sertraline Hcl) 50 Mg Tablet 1 Tab PO DAILY LAST DOSE GIVEN: DATE: TIME: NEXT DOSE DUE: DATE: TIME: Metoprolol Succinate ( Xl ) (Metoprolol Succinate) 50 Mg Tab.er.24h 1 Tab PO DAILY LAST DOSE GIVEN: DATE: TIME: NEXT DOSE DUE: DATE: TIME: Aspirin 81 Mg Tab.chew 162 Mg PO DAILY LAST DOSE GIVEN: DATE: TIME: NEXT DOSE DUE: DATE: TIME: Patient Instructions Patient Instuctions SEE [facility] DISCHARGE. RABIA BERNARD DO May 05, 2017 14:35
[2017-05-05] MEDS ORDERED: METO50TA10 PO (15:06)
[2017-05-05] MEDS ORDERED: ASPI-630 PO (15:06)
[2017-05-05] MEDS ORDERED: ATOR20TA58 PO (15:06)
[2017-05-05] MEDS ORDERED: DILT240C77 PO (15:06)
[2017-05-05] MEDS ORDERED: APIX5TAB3 PO (15:06)
--- NOTE | 2017-05-05 15:23 | CARD ---
APPROVED REPORT EXAM: Two-dimensional and M-mode echocardiogram with Doppler and color Doppler. Other Information Quality : Good INDICATION Atrial Fibrillation Surgery/Intervention CABG: Date: 2006 2D DIMENSIONS RVDd2.9 (2.9-3.5cm)Left Atrium(2D)3.4 (1.6-4.0cm) IVSd1.1 (0.7-1.1cm)Aortic Root(2D)3.3 (2.0-3.7cm) LVDd5.2 (3.9-5.9cm)LVOT Diameter2.4 (1.8-2.4cm) PWd1.2 (0.7-1.1cm)LVDs4.3 (2.5-4.0cm) FS (%) 30.0 %SV46.1 ml LVEF(%)60.0 (>50%) Aortic Valve AoV Peak Gary.101.5cm/sAoV VTI16.3cm AO Peak GR.4.1mmHgLVOT Peak Gary.83.6cm/s LVOT VTI 16.95cmAO Mean GR.2mmHg SUSHIL (VMAX)3.47xv9FJG (VTI)4.56cm2 Mitral Valve MV E Jcgxmvfo83.7cm/sMV DECEL [id number] MV A Joloekvx10.0cm/sE/A Ratio1.3 Pulmonary Vein S1 Zxyxtbdy14.2cm/sD2 Ofncedvy70.7cm/s LEFT VENTRICLE The left ventricle is normal size. There is mild concentric left ventricular hypertrophy. The left ve ntricular systolic function is normal and the ejection fraction is within normal range. The Ejection Fraction is 55-60%. Transmitral Doppler flow pattern is Grade II-pseudonormal filling dynamics. RIGHT VENTRICLE The right ventricle is normal size. The right ventricular systolic function is normal. ATRIA The left atrium size is normal. The right atrium size is normal. The interatrial septum is intact wit h no evidence for an atrial septal defect or patent foramen ovale as noted on 2-D or Doppler imaging. AORTIC VALVE The aortic valve is calcified but opens well. Doppler and Color Flow revealed no significant aortic r egurgitation. There is no significant aortic valvular stenosis. MITRAL VALVE The mitral valve is calcified but opens well. There is no evidence of mitral valve prolapse. There is no mitral valve stenosis. Doppler and Color Flow revealed no mitral valve regurgitation noted. TRICUSPID VALVE The tricuspid valve is normal in structure and function. Doppler and Color Flow revealed trace tricus pid valve regurgitation. There is no tricuspid valve stenosis. PULMONIC VALVE The pulmonary valve is normal in structure and function. Doppler and Color Flow revealed trace pulmon ic valvular regurgitation. There is no pulmonic valvular stenosis. GREAT VESSELS The aortic root is normal in size. The ascending aorta is normal in size. The IVC is normal in size a nd collapses >50% with inspiration. PERICARDIAL EFFUSION There is no evidence of significant pericardial effusion. Critical Notification Critical Value: No <Conclusion> The left ventricle is normal size. The left ventricular systolic function is normal and the ejection fraction is within normal range. The Ejection Fraction is 55-60%. There is mild concentric left ventricular hypertrophy. There is no significant aortic valvular stenosis. Doppler and Color Flow revealed no significant aortic regurgitation. Doppler and Color Flow revealed no mitral valve regurgitation noted. Doppler and Color Flow revealed trace tricuspid valve regurgitation.
== END 2017-05-05 15:48 | disposition home or self-care (01) ==
LOC: ER 09:48 → INTOOBSV 11:36 → ICU 11:36
PROVIDERS: ADMIT Family Medicine; ATTEND Family Medicine
DX: I48.0 Paroxysmal atrial fibrillation (principal); I25.10 Atherosclerotic heart disease of native coronary artery without angina pectoris; I10 Essential (primary) hypertension; E78.5 Hyperlipidemia, unspecified; E11.9 Type 2 diabetes mellitus without complications; Z95.1 Presence of aortocoronary bypass graft; Z79.01 Long term (current) use of anticoagulants
CPT/HCPCS: 36415; 71010; 80048; 80053; 80061; 80307; 81001; 82947; 83735; 83880; 84443; 84484; 85025; 85610; 85730; 87641; 93005; 93306; 96365; 96366; 96372; 96375; 99285; G0378; J1650; J3490; G0379; G0479

== ENCOUNTER → 2017-05-16 | Outpatient (CLI) | payer OTHER ==
[2017-05-05 14:00] VITALS: BP 120/78
[~2017-05-16] MED LIST: AMLO5TAB2 PO; APIX5TAB3 PO; ASPI-630 PO; ATOR20TA58 PO; DILT240C77 PO; LISI-334 PO; METF10002 PO; METO50TA10 PO; REGADENOSON 0.4 MG/5 ML DISP.SYRIN. IV ONE; SERT50TA PO; SIMV40TA3 PO
--- NOTE | 2017-05-16 14:54 | RAD ---
APPROVED REPORT Test Type: Pharmacological Stress Nurse/Tech: Ousmane Test Indications: A-Fib Cardiac History: NM, Triple bypass 10yrs ago Medications: See EHR Resting Heart Rate: 60 bpm Resting Blood Pressure: 161/70mmHg Pretest Chest Pain: No chest pain Pharm. Details Pharmacologic stress testing was performed using 0.4mg per 5ml of regadenoson given intravenously ove r 7-10 seconds. Stress Symptoms Dyspnea, No acute changes POST EXERCISE Reason for Termination: Infusion complete Max HR: 98 bpm Max Blood Pressure: 174/72mmHg Blood Pressure response to exercise: Normal blood pressure response during stress. Heart Rate response to exercise: Increased Chest Pain: No. Arrhythmia: No. ST Change: No. INTERPRETATION Stress EKG Conclusion: No evidence of stress induced EKG changes. Imaging Protocol IMAGE PROTOCOL: Rest Tc-99m/stress Tc-99m 1 day Rest: Stress: Viability: Radiopharm.Tc99m BytrdwilxGc22k Sestamibi Tsdt34uPj 32mCi Duration 20min. 15min. Img Date 05/16/2017 05/16/2017 Inj-Img Zrfh00uex. 45min. Rest Admin Site:IV - Right HandAdministrator: RT Lorelei (R)(N) Stress Admin Site: IV - Right HandAdministrator: RT Lorelei (R)(N) STRESS DATA End Diast. Vol.109.0mlAv. Heart Rate75.0bpm LVEDV index BSA2.0mlCardiac Output0.1L/min End Syst. Vol.28.0mlCO Index BSA6.1L/min LVESV index BSA1.0mlMyocardial Xcik673.0g Eject. Bqzvewko59.0% Stress Rates Pk. Fill Rate3.13EDV/secLVtime Pk. Fill 145.72msec Pk. Empty Rate4.45ESV/secLVtime Pk. Qvwhh551.55msec 1/ Pk. Fill1.63EDV/sec Stress Scores Regional WT0.00Summed WT1.00 Regional WM0.00Summed WM5.00 LV Perfusion There is a small sized, severe in intensity fixed apical perfusion defect suggestive of prior infarct without ischemia. The perfusion abnormality is more prominent on rest images, suggestive of artifact given normal regional wall motion in this area. Wall Motion EF > 70% LV Perf. Quant 17 Seg. SSS5.00 17 Seg. SRS15.00 17 Seg. SDS0.00 Stress Defect Extent (% LAD)23.80Rest Defect Extent (% LAD)37.50Rev. Defect Extent (% LAD)0.00 Stress Defect Extent (% LCX) 7.50Rest Defect Extent (% LCX)22.50Rev. Defect Extent (% LCX)0.00 Stress Defect Extent (% RCA)2.20Rest Defect Extent (% RCA)17.80Rev. Defect Extent (% RCA)0.00 Stress Defect Extent (% YARELI)12.60Rest Defect Extent (% YARELI)30.00Rev. Defect Extent (% YARELI)0.00 Other Information Quality:Fair Risk Assessment: Low Risk Conclusion 1. No evidence of stress induced EKG changes 2. There is a small sized, severe in intensity fixed apical perfusion defect suggestive of prior infa rct without ischemia. The perfusion abnormality is more prominent on rest images, suggestive of artif act given normal regional wall motion in this area. 3. Low risk study. EF > 70% 4. Motion artifact noted.
== END | disposition home or self-care (01) ==
LOC: NM 07:24
PROVIDERS: ATTEND Internal Medicine Cardiovascular Disease
DX: I48.91 Unspecified atrial fibrillation (principal); Z98.890 Other specified postprocedural states
CPT/HCPCS: 78452; 93017; 96374; 96375; 96376; A9500; J2785

== ENCOUNTER → 2021-10-05 | Outpatient (CLI) | payer MEDICARE ==
[2017-05-05 14:00] VITALS: BP 120/78
[~2021-10-05] MED LIST changes: +AMLO-186 PO; -AMLO5TAB2 PO; +DILT240C33 PO; -DILT240C77 PO; -LISI-334 PO; +LISI20TA18 PO; -METF10002 PO; +METF10007 PO; -METO50TA10 PO; +METO50TA29 PO; -REGADENOSON 0.4 MG/5 ML DISP.SYRIN. IV ONE; +SIMV40TA18 PO; -SIMV40TA3 PO
--- NOTE | 2021-10-05 15:17 | RAD ---
MR#: [id number] Date of Study: 10/05/2021 Ordering Physician: YAJAIRA JENKINS, Referring Physician: YAJAIRA JENKINS, Tech: Bree Gregorio RVT, [place] APPROVED REPORT Patient Location: OUT-PATIENT Indications Claudication: Grayscale images of the bilateral lower extremity arterial vessels demonstrates moderate diffuse athe rosclerotic plaque. On the right side probable moderate disease involving the distal SFA. There is three-vessel runoff b elow the knee with monophasic waveforms again suggestive of moderate diffuse disease. On the left side there is again proximal moderate SFA disease of approximately 50%. There is again t hree-vessel runoff below the knee with likely greater than 50% stenosis of the distal posterior tibia l artery. Monophasic waveforms are again noted in the below-knee vessels suggestive of diffuse ather osclerotic plaque. Risk Factors Hypertension Diabetes Smoking VELOCITY AND DOPPLER WAVEFORM ANALYSIS RIGHT cm/secWaveformSeverity LEFT cm/secWaveform Severity dCFA 112.0BiphasicdCFA 154.0Biphasic Prof Fem Art. 57.0BiphasicProf Fem Art. 117.0Biphasic Fem Art Prox. 84.0BiphasicFem Art Prox. 201.0Biphasic Fem Art Mid. 60.0BiphasicFem Art Mid. 94.0Biphasic Fem Art Dist. 133.0BiphasicFem Art Dist. 97.0Biphasic Pop Art(Fossa) 50.0BiphasicPop Art(AK) 90.0Biphasic [employer] Prox. 71.0MonophasicPTA Prox. 133.0Biphasic R[employer] Dist. 33.0MonophasicPTA Dist. 37.0Monophasic Per Art Dist.21.0MonophasicPer Art Dist.83.0Biphasic YASMIN Prox. 30.0MonophasicATA Prox. 45.0Biphasic DPA 41MonophasicDPA 78 Critical Notification Critical Value: No <Conclusion> 1. 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 No focal high-grade stenosis identified Signed by : Yajaira Jenkins, Electronically Approved : 10/05/2021 15:17:26
== END ==
LOC: US 14:06
PROVIDERS: ATTEND Internal Medicine Cardiovascular Disease
DX: I70.213 Atherosclerosis of native arteries of extremities with intermittent claudication, bilateral legs (principal); M79.604 Pain in right leg; M79.605 Pain in left leg
CPT/HCPCS: 93925

== ENCOUNTER → 2021-10-26 | Outpatient (CLI) | payer MEDICARE ==
[2017-05-05 14:00] VITALS: BP 120/78
--- NOTE | 2021-10-26 20:41 | CARD ---
MR#: [id number] Date of Study: 10/26/2021 Ordering Physician: STEPHANIE TRINIDAD, Referring Physician: STEPHANIE TRINIDAD, Tech: Fatoumata Jovi RUST APPROVED REPORT EXAM: Two-dimensional and M-mode echocardiogram with Doppler and color Doppler. Other Information Quality : AverageHR: 84bpm Technically limited study due to body habitus. INDICATION Cardiac Disease: CAD RISK FACTORS Hypertension Hyperlipidemia Diabetes 2D DIMENSIONS Left Atrium(2D)3.4 (1.6-4.0cm)IVSd1.1 (0.7-1.1cm) Aortic Root(2D)3.3 (2.0-3.7cm)LVDd4.8 (3.9-5.9cm) LVOT Diameter2.3 (1.8-2.4cm)PWd1.1 (0.7-1.1cm) LVDs3.0 (2.5-4.0cm)FS (%) 37.2 % SV72.8 mlLVEF(%)67.1 (>50%) Aortic Valve AoV Peak Gary.128.2cm/sAoV VTI27.1cm AO Peak GR.6.6mmHgLVOT Peak Gary.99.8cm/s LVOT VTI 18.49cmAO Mean GR.3mmHg SUSHIL (VMAX)3.04qg9KLV (VTI)2.77cm2 Mitral Valve MV E Kpivkifb43.7cm/sMV E Peak Gr.3mmHg MV DECEL [id number] A Dgnskldh85.1cm/s MV E Mean Gr.2mmHgE/A Ratio0.9 Pulmonary Valve PV Peak Sjnumycu75.5cm/sPV Peak Grad.4mmHg LEFT VENTRICLE The left ventricle is normal size. There is mild concentric left ventricular hypertrophy. The left ve ntricular systolic function is normal and the ejection fraction is within normal range. The Ejection Fraction is 55-60%. The basal to mid inferior wall is hypokinetic. Transmitral Doppler flow pattern i s Grade II-pseudonormal filling dynamics. RIGHT VENTRICLE The right ventricle is mildly dilated. There is normal right ventricular wall thickness. The right ve ntricular systolic function is normal. ATRIA The left atrium size is normal. The right atrium is mildly dilated. The interatrial septum is intact with no evidence for an atrial septal defect or patent foramen ovale as noted on 2-D or Doppler imagi ng. AORTIC VALVE The aortic valve is grossly within normal limits. Doppler and Color Flow revealed no significant aort ic regurgitation. There is no significant aortic valvular stenosis. Calculated aortic valve area is 2 .9 cm2 with maximum pressure gradient of 7 mmHg and mean pressure gradient of 4 mmHg. MITRAL VALVE The mitral valve is normal in structure and function. There is no evidence of mitral valve prolapse. There is no mitral valve stenosis. Doppler and Color Flow revealed no mitral valve regurgitation note d. TRICUSPID VALVE The tricuspid valve is normal in structure and function. Doppler and Color Flow revealed no tricuspid valve regurgitation noted. There is no tricuspid valve stenosis. PULMONIC VALVE The pulmonic valve is not well visualized. GREAT VESSELS The aortic root is normal in size. The ascending aorta is normal in size. The IVC is normal in size a nd collapses >50% with inspiration. PERICARDIAL EFFUSION There is no evidence of significant pericardial effusion. Critical Notification Critical Value: No <Conclusion> The left ventricular systolic function is normal and the ejection fraction is within normal range. Th e Ejection Fraction is 55-60%. The basal to mid inferior wall is hypokinetic. The right ventricle is mildly dilated. Signed by : Everett Perez, Electronically Approved : 10/26/2021 20:41:01
== END ==
LOC: ECHO 15:06
PROVIDERS: ATTEND Internal Medicine Cardiovascular Disease
DX: I51.7 Cardiomegaly (principal); I25.810 Atherosclerosis of coronary artery bypass graft(s) without angina pectoris
CPT/HCPCS: 93306